=== PATIENT | male | born 1945 | race Caucasian/White ===

== ENCOUNTER 2020-06-09 06:08 | Inpatient (IN) | payer MEDICARE ==
[2020-06-09] MEDS: Nozin Nasal Sanitizer NASBOTH SCH ×2 (06:24→21:12)
[2020-06-09] MEDS ORDERED: Povidone-Iodine 10% Soln 118.25 ML Bottle ONE (06:38)
[2020-06-09] MEDS ORDERED: Bupivacaine 0.5% 30 ML SDV ONE (06:38)
[2020-06-09] MEDS ORDERED: Lactated Ringers 1,000 ML IV SCH (06:45)
[2020-06-09] MEDS ORDERED: Propofol 200 MG/20 ML SDV ONE (07:28)
[2020-06-09] MEDS ORDERED: fentaNYL 100 MCG/2 ML SDV ONE ×2 (07:28→08:41)
[2020-06-09] MEDS ORDERED: Midazolam 1 MG/ML 2 ML SDV ONE (07:28)
[2020-06-09] MEDS ORDERED: ceFAZolin 2 GM in Premix Bag 1 BAG IV ONE (07:30)
[2020-06-09] MEDS ORDERED: ceFAZolin 2 GM in Sodium Chloride 0.9% 100 ML IV ONE (07:30)
[2020-06-09] MEDS ORDERED: Lactated Ringers 1,000 ML ONE (08:06)
[2020-06-09] MEDS ORDERED: Sennosides 8.6 MG Tab PO PRN (09:13)
[2020-06-09] MEDS ORDERED: Ondansetron 4 MG/2 ML SDV IVPUSH PRN (09:13)
[2020-06-09] MEDS ORDERED: Acetaminophen 325 MG Tab PO PRN (09:13)
[2020-06-09] MEDS ORDERED: Acetaminophen/HYDROcodone 325-5 MG Tab PO PRN ×2 (09:13→17:40)
[2020-06-09] MEDS ORDERED: Magnesium Hydroxide 400 MG/5 ML Susp 30 ML Cup PO PRN (09:13)
[2020-06-09] MEDS: Acetaminophen/oxyCODONE 325-5 MG Tab PO PRN ×3 (11:01→19:18)
[2020-06-09] MEDS: Sodium Chloride 0.9% 1,000 ML IV SCH ×2 (11:10→18:19)
--- NOTE | 2020-06-09 11:52 | CR ---
Knee 1V or 2V Rt CLINICAL HISTORY: Hemiarthroplasty Comparison: None FINDINGS: Patient is status post recent medial hemiarthroplasty. Components appear well seated. 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 Impression: Status post medial hemiarthroplasty.
[2020-06-09] MEDS: ceFAZolin 1 GM in Premix Bag 1 BAG IV SCH ×2 (13:58→21:13)
[2020-06-09] MEDS: Morphine 2 MG/ML SYRINGE IVPUSH PRN ×4 (14:15→17:17)
[2020-06-09] MEDS: traMADol 50 MG Tab PO PRN ×2 (16:05→22:41)
[2020-06-09] MEDS ORDERED: Ketorolac 30 MG/ML SDV IVPUSH PRN (17:36)
[2020-06-09] MEDS ORDERED: HYDROmorphone 1 MG/ML Syringe IVPUSH PRN (17:38)
[2020-06-09] MEDS ORDERED: Nozin Nasal Sanitizer NASBOTH SCH (21:00)
[2020-06-09] MEDS: Docusate Sodium 100 MG Cap PO SCH (21:12)
[2020-06-09] MEDS: Triamcinolone Acetonide 0.1% Crm 15 GM Tube TOP SCH (21:13)
[2020-06-10] MEDS: Ketorolac 30 MG/ML SDV IVPUSH SCH ×4 (00:05→17:00)
[2020-06-10] MEDS: Sodium Chloride 0.9% 1,000 ML IV SCH (02:27)
[2020-06-10] MEDS: traMADol 50 MG Tab PO PRN ×3 (05:26→18:19)
[2020-06-10] MEDS: ceFAZolin 1 GM in Premix Bag 1 BAG IV SCH (05:29)
[2020-06-10] MEDS: Acetaminophen/oxyCODONE 325-5 MG Tab PO PRN ×4 (07:31→22:00)
[2020-06-10] MEDS ORDERED: metFORMIN 500 MG Tab PO SCH (09:00)
[2020-06-10] MEDS: Docusate Sodium 100 MG Cap PO SCH ×2 (09:25→20:29)
[2020-06-10] MEDS: Nozin Nasal Sanitizer NASBOTH SCH ×2 (09:25→20:29)
[2020-06-10] MEDS: Hydrochlorothiazide 25 MG Tab (PTOM) PO SCH (09:26)
[2020-06-10] MEDS: Enoxaparin 30 MG/0.3 ML Syringe SUBCUT SCH (09:26)
[2020-06-10] MEDS: METFORMIN 1,000MG TAB (PTOM) PO SCH (09:27)
[2020-06-10] MEDS: Lisinopril 10 MG Tab (PTOM) PO SCH (09:28)
[2020-06-10] MEDS: Triamcinolone Acetonide 0.1% Crm 15 GM Tube TOP SCH (10:38)
--- NOTE | 2020-06-10 16:46 | PCM.SURGPN ---
- General Info Date of Service: 06/10/20 Date of Surgery/Procedure: 06/09/20 POD#: 1 Functional Status: Reports: Tolerating Diet, Ambulating (with FWW ), Urinating - Review of Systems Musculoskeletal: Reports: Leg Pain (right ), Joint Pain (right knee ), Joint Swelling (right knee ) Skin: Reports: Other (incision intact, bloody drainage) - Patient Data Vitals - Most Recent: Last Vital Signs Temp 98.7 F 06/10/20 14:57 Pulse 65 06/10/20 14:57 Resp 18 06/10/20 14:57 BP 131/51 L 06/10/20 14:57 Pulse Ox 97 06/10/20 14:57 Weight - Most Recent: 189 lb I&O - Last 24 Hours: Intake & Output 06/10/20 06/10/20 06/10/20 06:59 14:59 22:59 Intake Total 1519 1340 Output Total 475 625 Balance 1044 715 Lab Results Last 24 Hrs: Laboratory Results - last 24 hr 06/10/20 Range/Units 05:56 WBC 7.6 (4.5-11.0) K/uL RBC 4.74 (4.30-5.90) M/uL Hgb 13.3 (12.0-15.0) g/dL Hct 39.4 L (40.0-54.0) % MCV 83 (80-98) fL MCH 28 (27-31) pg MCHC 34 (32-36) % Plt Count 259 (150-400) K/uL Med Orders - Current: Current Medications Acetaminophen (Acetaminophen 325 Mg Tab) 650 mg PO Q4H PRN PRN Reason: Pain/Fever Hydrocodone Bitart/Acetaminophen (Acetaminophen/Hydrocodone 325-5 Mg Tab) 2 tab PO Q4H PRN PRN Reason: Pain (mild 1-3) Bandage/Support Products (Nozin Nasal Tenterer) 1 applic NASBOTH BID [facility] Stop: 06/15/20 21:01 Last Admin: 06/10/20 09:25 Dose: 1 applic Documented by: Docusate Sodium (Docusate Sodium 100 Mg Cap) 100 mg PO BID [facility] Last Admin: 06/10/20 09:25 Dose: 100 mg Documented by: Enoxaparin Sodium (Enoxaparin 30 Mg/0.3 Ml Syringe) 30 mg SUBCUT DAILY [facility] Last Admin: 06/10/20 09:26 Dose: 30 mg Documented by: Hydrochlorothiazide (Hydrochlorothiazide 25 Mg Tab (Ptom)) 25 mg PO DAILY [facility] Last Admin: 06/10/20 09:26 Dose: 25 mg Documented by: Hydromorphone HCl (Hydromorphone 1 Mg/Ml Syringe) 1 mg IVPUSH Q1H PRN PRN Reason: Breakthrough Pain Last Admin: 06/09/20 21:09 Dose: 1 mg Documented by: Sodium Chloride (Normal Saline) 1,000 mls @ 125 mls/hr IV ASDIRECTED [facility] Last Admin: 06/10/20 02:27 Dose: 125 mls/hr Documented by: Ketorolac Tromethamine (Ketorolac 30 Mg/Ml Sdv) 15 mg IVPUSH Q6H [facility] Stop: 06/14/20 20:58 Last Admin: 06/10/20 12:52 Dose: Not Given Documented by: Lisinopril (Lisinopril 10 Mg Tab (Ptom)) 10 mg PO DAILY [facility] Last Admin: 06/10/20 09:28 Dose: 10 mg Documented by: Magnesium Hydroxide (Magnesium Hydroxide 400 Mg/5 Ml Susp 30 Ml Cup) 30 ml PO BID PRN PRN Reason: Constipation Ondansetron HCl (Ondansetron 4 Mg/2 Ml Sdv) 4 mg IVPUSH Q4H PRN PRN Reason: Nausea/Vomiting Oxycodone/Acetaminophen (Acetaminophen/Oxycodone 325-5 Mg Tab) 1 - 2 tab PO Q4H PRN PRN Reason: Pain Last Admin: 06/10/20 13:16 Dose: 2 tab Documented by: Metformin 1,000mg (Tab (Ptom)) 0 each PO DAILY [facility] Last Admin: 06/10/20 09:27 Dose: 1 each Documented by: Senna (Sennosides 8.6 Mg Tab) 8.6 mg PO BID PRN PRN Reason: Constipation Tramadol HCl (Tramadol 50 Mg Tab) 50 mg PO Q6H PRN PRN Reason: Breakthrough Pain Last Admin: 06/10/20 11:52 Dose: 50 mg Documented by: Discontinued Medications Hydrocodone Bitart/Acetaminophen (Acetaminophen/Hydrocodone 325-5 Mg Tab) 1 tab PO Q4H PRN PRN Reason: Pain (mild 1-3) Bupivacaine HCl (Bupivacaine 0.5% 30 Ml Sdv) Confirm Administered Dose 30 ml .ROUTE .STK-MED ONE Stop: 06/09/20 06:39 Fentanyl (Fentanyl 100 Mcg/2 Ml Sdv) Confirm Administered Dose 100 mcg .ROUTE .STK-MED ONE Stop: 06/09/20 07:29 Fentanyl (Fentanyl 100 Mcg/2 Ml Sdv) Confirm Administered Dose 100 mcg .ROUTE .STK-MED ONE Stop: 06/09/20 08:42 Lactated Ringer's (Ringers, Lactated) 1,000 mls @ 75 mls/hr IV ASDIRECTED [facility] Last Admin: 06/09/20 06:24 Dose: 75 mls/hr Documented by: Cefazolin Sodium/Dextrose 2 gm (/ Premix) 50 mls @ 100 mls/hr IV ONETIME ONE Stop: 06/09/20 07:59 Last Admin: 06/09/20 07:40 Dose: 100 mls/hr Documented by: Lactated Ringer's (Ringers, Lactated) Confirm Administered Dose 1,000 mls @ as directed .ROUTE .STK-MED ONE Stop: 06/09/20 08:07 Cefazolin Sodium/Dextrose 1 gm (/ Premix) 50 mls @ 100 mls/hr IV Q8H [facility] Stop: 06/10/20 06:29 Last Admin: 06/10/20 05:29 Dose: 100 mls/hr Documented by: Ketorolac Tromethamine (Ketorolac 30 Mg/Ml Sdv) 30 mg IVPUSH Q8H PRN PRN Reason: Pain (severe 7-10) Last Admin: 06/09/20 18:11 Dose: 30 mg Documented by: Metformin HCl (Metformin 500 Mg Tab) 500 mg PO DAILY [facility] Midazolam HCl (Midazolam 1 Mg/Ml 2 Ml Sdv) Confirm Administered Dose 2 mg .ROUTE .STK-MED ONE Stop: 06/09/20 07:29 Morphine Sulfate (Morphine 2 Mg/Ml Syringe) 1 mg IVPUSH Q1H PRN PRN Reason: Breakthrough Pain Last Admin: 06/09/20 17:17 Dose: 1 mg Documented by: Povidone Iodine (Povidone-Iodine 10% Soln 118.25 Ml Bottle) Confirm Administered Dose 1 ml .ROUTE .STK-MED ONE Stop: 06/09/20 06:39 Last Admin: 06/09/20 08:53 Dose: 1 ml Documented by: Propofol (Propofol 200 Mg/20 Ml Sdv) Confirm Administered Dose 200 mg .ROUTE .STK-MED ONE Stop: 06/09/20 07:29 Triamcinolone Acetonide (Triamcinolone Acetonide 0.1% Crm 15 Gm Tube) 0 gm TOP BID [facility] Last Admin: 06/10/20 10:38 Dose: Not Given Documented by: - Exam Wound/Incisions: Healing Well, Drainage Quality Assessment: DVT Prophylaxis General: Alert, Oriented, Cooperative, No Acute Distress Extremities: Pedal Edema (mild ), Joint Swelling (R knee ), Leg Pain (right ), Limited Range of Motion, Increased Warmth Skin: Warm, Intact Neurological: No New Focal Deficit Psy/Mental Status: Alert, Normal Affect, Normal Mood Sepsis Event Note - Evaluation Sepsis Screening Result: No Definite Risk - Focused Exam Vital Signs: Vital Signs Temp Pulse Resp BP BP Pulse Ox 06/10/20 14:57 98.7 F 65 18 131/51 L 97 06/10/20 11:00 97.7 F 61 18 124/53 L 94 L 06/10/20 09:28 138/47 L 06/10/20 07:00 99.2 F 72 18 138/47 L 92 L - Problem List & Annotations (1) Status post right partial knee replacement SNOMED Code(s): 016599757, 35595346, 120823938, 357997671 Code(s): Z96.651 - PRESENCE OF RIGHT ARTIFICIAL KNEE JOINT Status: Acute Current Visit: Yes - Problem List Review Problem List Initiated/Reviewed/Updated: Yes - My Orders Last 24 Hours: Active Orders 24 hr Category Date Time Status Admission Status [Patient Status] [ADT] Routine ADT 06/10/20 16:32 Ordered Acetaminophen/HYDROcodone [[place] 325-5 MG] Med 06/09/20 17:40 Active 2 tab PO Q4H PRN Docusate Sodium [Colace] Med 06/09/20 21:00 Active 100 mg PO BID Enoxaparin [Lovenox] Med 06/10/20 09:00 Active 30 mg SUBCUT DAILY HYDROmorphone [Dilaudid] Med 06/09/20 17:38 Active 1 mg IVPUSH Q1H PRN Ketorolac [Toradol] Med 06/10/20 00:00 Active 15 mg IVPUSH Q6H Patient's Own Medication [Ptom] Med 06/10/20 09:00 Active 0 each PO DAILY hydroCHLOROthiazide Med 06/10/20 09:00 Active 25 mg PO DAILY lisinopriL [Prinivil] Med 06/10/20 09:00 Active 10 mg PO DAILY traMADol [Ultram] Med 06/09/20 15:49 Active 50 mg PO Q6H PRN Medication Orders Acetaminophen (Acetaminophen 325 Mg Tab) 650 mg PO Q4H PRN PRN Reason: Pain/Fever Hydrocodone Bitart/Acetaminophen (Acetaminophen/Hydrocodone 325-5 Mg Tab) 2 tab PO Q4H PRN PRN Reason: Pain (mild 1-3) Bandage/Support Products (Nozin Nasal Tenterer) 1 applic NASBOTH BID [facility] Stop: 06/15/20 21:01 Last Admin: 06/10/20 09:25 Dose: 1 applic Documented by: Admin: 06/09/20 21:12 Dose: 1 applic Documented by: Admin: 06/09/20 06:24 Dose: 1 applic Documented by: DIMA Docusate Sodium (Docusate Sodium 100 Mg Cap) 100 mg PO BID [facility] Last Admin: 06/10/20 09:25 Dose: 100 mg Documented by: Admin: 06/09/20 21:12 Dose: 100 mg Documented by: BRE Enoxaparin Sodium (Enoxaparin 30 Mg/0.3 Ml Syringe) 30 mg SUBCUT DAILY [facility] Last Admin: 06/10/20 09:26 Dose: 30 mg Documented by: MACY Hydrochlorothiazide (Hydrochlorothiazide 25 Mg Tab (Ptom)) 25 mg PO DAILY [facility] Last Admin: 06/10/20 09:26 Dose: 25 mg Documented by: MACY Hydromorphone HCl (Hydromorphone 1 Mg/Ml Syringe) 1 mg IVPUSH Q1H PRN PRN Reason: Breakthrough Pain Last Admin: 06/09/20 21:09 Dose: 1 mg Documented by: BRE Sodium Chloride (Normal Saline) 1,000 mls @ 125 mls/hr IV ASDIRECTED [facility] Last Admin: 06/10/20 02:27 Dose: 125 mls/hr Documented by: Infusion: 06/10/20 02:19 Dose: 125 mls/hr Documented by: Admin: 06/09/20 18:19 Dose: 125 mls/hr Documented by: Infusion: 06/09/20 18:19 Dose: 125 mls/hr Documented by: Admin: 06/09/20 11:10 Dose: 125 mls/hr Documented by: ANN Ketorolac Tromethamine (Ketorolac 30 Mg/Ml Sdv) 15 mg IVPUSH Q6H [facility] Stop: 06/14/20 20:58 Last Admin: 06/10/20 12:52 Dose: Not Given Documented by: Admin: 06/10/20 05:27 Dose: 15 mg Documented by: Admin: 06/10/20 00:05 Dose: 15 mg Documented by: BRE Lisinopril (Lisinopril 10 Mg Tab (Ptom)) 10 mg PO DAILY [facility] Last Admin: 06/10/20 09:28 Dose: 10 mg Documented by: MACY Magnesium Hydroxide (Magnesium Hydroxide 400 Mg/5 Ml Susp 30 Ml Cup) 30 ml PO BID PRN PRN Reason: Constipation Ondansetron HCl (Ondansetron 4 Mg/2 Ml Sdv) 4 mg IVPUSH Q4H PRN PRN Reason: Nausea/Vomiting Oxycodone/Acetaminophen (Acetaminophen/Oxycodone 325-5 Mg Tab) 1 - 2 tab PO Q4H PRN PRN Reason: Pain Last Admin: 06/10/20 13:16 Dose: 2 tab Documented by: Admin: 06/10/20 07:31 Dose: 2 tab Documented by: Admin: 06/09/20 19:18 Dose: 2 tab Documented by: Admin: 06/09/20 15:11 Dose: 2 tab Documented by: Admin: 06/09/20 11:01 Dose: 1 tab Documented by: ANN Metformin 1,000mg (Tab (Ptom)) 0 each PO DAILY [facility] Last Admin: 06/10/20 09:27 Dose: 1 each Documented by: MACY Senna (Sennosides 8.6 Mg Tab) 8.6 mg PO BID PRN PRN Reason: Constipation Tramadol HCl (Tramadol 50 Mg Tab) 50 mg PO Q6H PRN PRN Reason: Breakthrough Pain Last Admin: 06/10/20 11:52 Dose: 50 mg Documented by: Admin: 06/10/20 05:26 Dose: 50 mg Documented by: Admin: 06/09/20 22:41 Dose: 50 mg Documented by: Admin: 06/09/20 16:05 Dose: 50 mg Documented by: EL - Assessment Assessment (Free Text/Narrative):: Patient is a pleasant 75 y/o male, s/p R partial knee arthroplasty of the medial compartment, POD#1. Patient tolerated surgery well with no complications. Paco struggled with pain control once the block wore off; pain PRNs were utilized. Reports pain is still present today, but much better controlled then yesterday. Patient was able to ambulate in the hallway with FWW the evening of surgery. Participated in PT twice on POD#1; ambulated 100 feet with FWW, completed bilateral LE strengthening exercises, and safely completed 1 stair. With increased motion, breakthrough bleeding has occurred through R knee incision. Dressing saturated and changed 3x today. Weaned off IV pain medications and transitioned to PO pain medications throughout POD#1. Tolerating consistent carbohydrate diet well with no nausea or vomiting. Catheter was removed and IV saline locked today. HgB stable at 13.3. Patient remains hemodynamically stable, vitals remain within acceptable limits. Patient encouraged to use IS throughout the day. Patient status changed from same day surgery to inpatient, as patient requires monitoring of R knee for resolution of bleeding with motion. Exam: Incision well approximated and intact with no surrounding erythema, but active bloody drainage. Mild warmth to touch of R knee. R knee with significant edema extending into R calf. + R pedal edema. Tibialis posterior pulse appreciated, 2+. Capillary refill appropriate, < 2 seconds. Calf is soft and supple. Sensation to R LE intact. Plan: * Continue PT and OT daily while in the hospital * Continue to monitor R knee incision/dressing for drainage and bleeding; additional ABD dressing + JEREMY wrap compression applied this afternoon by orthopedic provider. Nursing staff may change dressing as needed if breakthrough bleeding occurs * Continue with current pain regimen (see orders for details) * Anticipate discharge to home tomorrow, pending R knee bleeding has ceased and is under control
[2020-06-11] MEDS: Ketorolac 30 MG/ML SDV IVPUSH SCH (00:10)
[2020-06-11] MEDS: Acetaminophen/oxyCODONE 325-5 MG Tab PO PRN ×3 (02:30→11:43)
[2020-06-11] MEDS: Lisinopril 10 MG Tab (PTOM) PO SCH (08:11)
[2020-06-11] MEDS: Enoxaparin 30 MG/0.3 ML Syringe SUBCUT SCH (08:11)
[2020-06-11] MEDS: Hydrochlorothiazide 25 MG Tab (PTOM) PO SCH (08:12)
[2020-06-11] MEDS: METFORMIN 1,000MG TAB (PTOM) PO SCH (08:12)
[2020-06-11] MEDS: Nozin Nasal Sanitizer NASBOTH SCH (08:12)
[2020-06-11] MEDS: Docusate Sodium 100 MG Cap PO SCH (08:13)
[2020-06-11 10:52] VITALS: BP 155/61; PULSE 67
--- NOTE | 2020-06-11 12:25 | PCM.DCSUM1 ---
Discharge Summary - Hospital Course Brief History: Patient is a pleasant 75 y/o male, s/p R partial knee arthroplasty of the medial compartment. Patient has had chronic bilateral knee pain, right worse than the left. Symptoms have been refractory to conservative management, so patient elected to undergo a partial knee arthroplasty. Tolerated surgery well with no complications. Prolonged hospitalization for persistent bleeding of R knee incision. Diagnosis: Stroke: No Modified Glenn Scale: No Symptoms at All Modified Glenn Scale Score: 0 - Discharge Data Discharge Date: 06/11/20 Discharge Disposition: Home, Self-Care 01 Condition: Good - Referral to Home Health Date of Face to Face Encounter: 06/11/20 Reason for Homebound Status: Motivated to go home, support from spouse at home, minimal assistance with ADLs Primary Care Physician: PCP None - Discharge Diagnosis/Problem(s) (1) Status post right partial knee replacement SNOMED Code(s): 661265675, [id number], [id number], [id number] ICD Code: Z96.651 - PRESENCE OF RIGHT ARTIFICIAL KNEE JOINT Status: Acute Current Visit: Yes - Patient Summary/Data Operative Procedure(s) Performed: right knee arthroplasty Consults: Consultations 06/09/20 09:13 Consult to Case Management/Mall Manager [CONS] Routine Comment: Physician Instructions: Service(s) to be Consulted: Case Management Reason for Consult: Plan for Discharge Special Instructions: s/p R partial knee arthroplasty, medial compartment OT Evaluation and Treatment [CONS] Routine Please Evaluate and Treat. OT Reason for Consult: ADL's Special Instructions: s/p R partial medial compartment knee arthroplasty This query below is only for informational purposes and is not editable. PT Evaluation and Treatment [CONS] Routine Please Evaluate and Treat. PT Reason for Consult: Post op Ortho Surgery Special Instructions: s/p R partial knee arthroplasty, medial compartment This query below is only for informational purposes and is not editable. PT Evaluation and Treatment [CONS] Routine Please Evaluate and Treat. PT Reason for Consult: Post op Ortho Surgery Knee Pending Discharge: Yes, 1- 2 days Special Instructions: Schedule first outpatient PT appointment in 3-5 day post discharge. This query below is only for informational purposes and is not editable. Hospital Course: Patient is a pleasant 75 y/o male, s/p R partial knee arthroplasty of the medial compartment, POD#2. Patient tolerated surgery well with no complications. Paco struggled with pain control once the block wore off; PRNs were utilized and by late evening, pain seemed better controlled. Patient was able to ambulate in the hallway with FWW the evening of surgery. Participated in PT daily; ambulated 150+ft with FWW, completed stairs safely, worked on bilateral LE strengthening exercises, and demonstrated competency transferring from bed to chair. Patient demonstrated ability to ADLs with minimal assistance. On POD#1, catheter was removed, IV saline locked, and dressing changed multiple times due to breakthrough bleeding. Patient status changed to inpatient to allow for monitoring and cessation of bleeding from R knee incision. By POD#2, no active drainage from R knee incision. Minimal dried drainage on dressing. Patient showered prior to discharge. New dressing to be applied after shower. Tolerated consistent carbohydrate diet well with no nausea or vomiting. HgB on POD#1 13.3. Patient was hemodynamically stable throughout stay, vitals within acceptable limits. No dizziness nor orthostatic hypotension with ambulation. Pain well controlled with PO medications prior to discharge. Exam: R knee with moderate edema extending into R calf + pedal edema. Incision intact, no surrounding erythema nor active drainage. Mild warmth to touch of R knee. Tibialis posterior pulse appreciated, 2+. Capillary refill appropriate, < 3 seconds. Calf is soft and supple. Sensation to R LE intact. - Patient Instructions Diet: Usual Diet as Tolerated Activity: Apply Ice, Full Weight Bearing, Rest and Relax Today Driving: Do Not Drive Showering/Bathing: Shower in AM Wound/Incision Care: Keep Operative Site/Wound Site Clean and Dry, Change Dressing Daily Notify Provider of: Fever, Increased Pain, Swelling and Redness, Drainage - Discharge Plan *PRESCRIPTION DRUG MONITORING PROGRAM REVIEWED*: Yes *COPY OF PRESCRIPTION DRUG MONITORING REPORT IN PATIENT PINKY: Not Applicable Home Medications: Home Meds Hydrochlorothiazide 25 mg PO DAILY 03/15/16 [History] Lisinopril 10 mg PO DAILY 03/15/16 [History] Triamcinolone Acetonide [Kenalog 0.1% Crm] 1 applic TOP BID 03/15/16 [History] Folic Acid/Multivit-Min/Lutein [Centrum Silver Chewable Tablet] 1 tab PO DAILY 03/29/16 [History] Glucosamine/MSM/Chondroit/C/Mn [Flexi Joint Tablet] 1 tab PO DAILY 03/29/16 [History] Aspirin [Halfprin] 81 mg PO DAILY 06/09/20 [History] metFORMIN [Glucophage] 500 mg PO DAILY 06/09/20 [History] Oxygen Therapy Mode: Room Air Patient Handouts: Preventing Problems After Surgery, Preventing Constipation After Surgery, Partial Knee Replacement, Care After Referrals: Polo Davis, PT [Physical Therapist] - 06/13/20 9:30 am (Please arrive at 9:00 AM to complete paperwork prior to PT appointment.) Jb Cruz MD [Physician] - 06/24/20 11:00 am (Please arrive 15 minutes early to register for your appointment.) - Discharge Summary/Plan Comment DC Time >30 min.: No Discharge Summary/Plan Comment: * Anticipate discharge to home this afternoon. Outpatient physical therapy orders in place. * New dressing applied to R knee over incision prior to discharge. Patient p rovided with 2 tubigrip stockings to help with swelling. * Pain medication script sent with patient; 5-325 mg Percocet, 1-2 tabs q6 hrs prn, dispense #50. * Patient educated about the warning signs of SSIs and DVT/VTE. Patient instructed to take 1 aspirin BID for DVT/VTE prophylaxis. Patient also instructed to continue with Nozin spray BID. * Patient to follow up with ortho clinic in 2 weeks. Encouraged to call if concerns or questions arise prior to scheduled apt. Patient agreeable and expressed understanding of the above plan. - General Info Date of Service: 06/11/20 Functional Status: Reports: Pain Controlled, Tolerating Diet, Ambulating (with FWW ), Urinating - Review of Systems General: Reports: No Symptoms HEENT: Reports: No Symptoms Pulmonary: Reports: No Symptoms Cardiovascular: Reports: No Symptoms Gastrointestinal: Reports: No Symptoms Genitourinary: Reports: No Symptoms Musculoskeletal: Reports: Leg Pain (right ), Joint Pain (right knee ), Joint Swelling (right knee ) Neurological: Reports: No Symptoms Psychiatric: Reports: No Symptoms - Patient Data Vitals - Most Recent: Last Vital Signs Temp 96.9 F 06/11/20 10:51 Pulse 67 06/11/20 10:51 Resp 16 06/11/20 10:51 BP 155/61 H 06/11/20 10:51 Pulse Ox 97 06/11/20 10:51 Weight - Most Recent: 189 lb I&O - Last 24 hours: Intake & Output 06/10/20 06/11/20 06/11/20 22:59 06:59 14:59 Intake Total 200 480 Output Total 1225 1750 400 Balance -1225 -1550 80 Med Orders - Current: Current Medications Acetaminophen (Acetaminophen 325 Mg Tab) 650 mg PO Q4H PRN PRN Reason: Pain/Fever Hydrocodone Bitart/Acetaminophen (Acetaminophen/Hydrocodone 325-5 Mg Tab) 2 tab PO Q4H PRN PRN Reason: Pain (mild 1-3) Bandage/Support Products (Nozin Nasal Hide Examiner) 1 applic NASBOTH BID [facility] Stop: 06/15/20 21:01 Last Admin: 06/11/20 08:12 Dose: 1 applic Documented by: Docusate Sodium (Docusate Sodium 100 Mg Cap) 100 mg PO BID [facility] Last Admin: 06/11/20 08:13 Dose: 100 mg Documented by: Enoxaparin Sodium (Enoxaparin 30 Mg/0.3 Ml Syringe) 30 mg SUBCUT DAILY [facility] Last Admin: 06/11/20 08:11 Dose: 30 mg Documented by: Hydrochlorothiazide (Hydrochlorothiazide 25 Mg Tab (Ptom)) 25 mg PO DAILY [facility] Last Admin: 06/11/20 08:12 Dose: 25 mg Documented by: Hydromorphone HCl (Hydromorphone 1 Mg/Ml Syringe) 1 mg IVPUSH Q1H PRN PRN Reason: Breakthrough Pain Last Admin: 06/09/20 21:09 Dose: 1 mg Documented by: Sodium Chloride (Normal Saline) 1,000 mls @ 125 mls/hr IV ASDIRECTED [facility] Last Admin: 06/10/20 02:27 Dose: 125 mls/hr Documented by: Lisinopril (Lisinopril 10 Mg Tab (Ptom)) 10 mg PO DAILY [facility] Last Admin: 06/11/20 08:11 Dose: 10 mg Documented by: Magnesium Hydroxide (Magnesium Hydroxide 400 Mg/5 Ml Susp 30 Ml Cup) 30 ml PO BID PRN PRN Reason: Constipation Last Admin: 06/11/20 11:47 Dose: 30 ml Documented by: Ondansetron HCl (Ondansetron 4 Mg/2 Ml Sdv) 4 mg IVPUSH Q4H PRN PRN Reason: Nausea/Vomiting Oxycodone/Acetaminophen (Acetaminophen/Oxycodone 325-5 Mg Tab) 1 - 2 tab PO Q4H PRN PRN Reason: Pain Last Admin: 06/11/20 11:43 Dose: 2 tab Documented by: Metformin 1,000mg (Tab (Ptom)) 0 each PO DAILY [facility] Last Admin: 06/11/20 08:12 Dose: 1 each Documented by: Senna (Sennosides 8.6 Mg Tab) 8.6 mg PO BID PRN PRN Reason: Constipation Last Admin: 06/11/20 08:17 Dose: 8.6 mg Documented by: Tramadol HCl (Tramadol 50 Mg Tab) 50 mg PO Q6H PRN PRN Reason: Breakthrough Pain Last Admin: 06/10/20 18:19 Dose: 50 mg Documented by: Discontinued Medications Hydrocodone Bitart/Acetaminophen (Acetaminophen/Hydrocodone 325-5 Mg Tab) 1 tab PO Q4H PRN PRN Reason: Pain (mild 1-3) Bupivacaine HCl (Bupivacaine 0.5% 30 Ml Sdv) Confirm Administered Dose 30 ml .ROUTE .STK-MED ONE Stop: 06/09/20 06:39 Fentanyl (Fentanyl 100 Mcg/2 Ml Sdv) Confirm Administered Dose 100 mcg .ROUTE .STK-MED ONE Stop: 06/09/20 07:29 Fentanyl (Fentanyl 100 Mcg/2 Ml Sdv) Confirm Administered Dose 100 mcg .ROUTE .STK-MED ONE Stop: 06/09/20 08:42 Lactated Ringer's (Ringers, Lactated) 1,000 mls @ 75 mls/hr IV ASDIRECTED [facility] Last Admin: 06/09/20 06:24 Dose: 75 mls/hr Documented by: Cefazolin Sodium/Dextrose 2 gm (/ Premix) 50 mls @ 100 mls/hr IV ONETIME ONE Stop: 06/09/20 07:59 Last Admin: 06/09/20 07:40 Dose: 100 mls/hr Documented by: Lactated Ringer's (Ringers, Lactated) Confirm Administered Dose 1,000 mls @ as directed .ROUTE .STK-MED ONE Stop: 06/09/20 08:07 Cefazolin Sodium/Dextrose 1 gm (/ Premix) 50 mls @ 100 mls/hr IV Q8H [facility] Stop: 06/10/20 06:29 Last Admin: 06/10/20 05:29 Dose: 100 mls/hr Documented by: Ketorolac Tromethamine (Ketorolac 30 Mg/Ml Sdv) 30 mg IVPUSH Q8H PRN PRN Reason: Pain (severe 7-10) Last Admin: 06/09/20 18:11 Dose: 30 mg Documented by: Ketorolac Tromethamine (Ketorolac 30 Mg/Ml Sdv) 15 mg IVPUSH Q6H [facility] Stop: 06/14/20 20:58 Last Admin: 06/11/20 00:10 Dose: Not Given Documented by: Metformin HCl (Metformin 500 Mg Tab) 500 mg PO DAILY [facility] Midazolam HCl (Midazolam 1 Mg/Ml 2 Ml Sdv) Confirm Administered Dose 2 mg .ROUTE .STK-MED ONE Stop: 06/09/20 07:29 Morphine Sulfate (Morphine 2 Mg/Ml Syringe) 1 mg IVPUSH Q1H PRN PRN Reason: Breakthrough Pain Last Admin: 06/09/20 17:17 Dose: 1 mg Documented by: Povidone Iodine (Povidone-Iodine 10% Soln 118.25 Ml Bottle) Confirm Administered Dose 1 ml .ROUTE .STK-MED ONE Stop: 06/09/20 06:39 Last Admin: 06/09/20 08:53 Dose: 1 ml Documented by: Propofol (Propofol 200 Mg/20 Ml Sdv) Confirm Administered Dose 200 mg .ROUTE .STK-MED ONE Stop: 06/09/20 07:29 Triamcinolone Acetonide (Triamcinolone Acetonide 0.1% Crm 15 Gm Tube) 0 gm TOP BID [facility] Last Admin: 06/10/20 10:38 Dose: Not Given Documented by: - Exam Quality Assessment: Reports: DVT Prophylaxis General: Reports: Alert, Oriented, Cooperative, No Acute Distress Extremities: Normal Capillary Refill, Pedal Edema, Leg Pain (right ), Limited R benjamin of Motion, Increased Warmth Skin: Reports: Dry, Intact Wound/Incisions: Reports: Healing Well, Dressing Dry and Intact, No Drainage Neurological: Reports: No New Focal Deficit Psy/Mental Status: Reports: Alert, Normal Affect, Normal Mood
--- NOTE | 2020-06-12 08:20 | OR ---
DATE OF PROCEDURE: 06/09/2020 SURGEON: Jb Cruz MD PREOPERATIVE DIAGNOSIS: Osteoarthritis, right knee. POSTOPERATIVE DIAGNOSES: 1. Osteoarthritis, right knee, medial compartment. 2. Extensive synovitis, right knee. PROCEDURES: 1. Right medial unicompartmental arthroplasty using [employer] ZUK components with a size D femur, 4 tibia, and 8 mm polyethylene. 2. Extensive synovectomy. ANIMAL CONTROL OFFICER: EVER Carrero ANESTHESIA: Spinal with sedation. INDICATIONS: Mr. Cantu is a pleasant 75-year-old gentleman who has been having progressive pain in the right knee for the past couple of years. Particularly over the last few months, it has gotten significantly worse, interfering with activities of daily living. X-rays reveal end-stage osteoarthritis of the medial compartment with a collapse and mild varus deformity. He has well-preserved lateral compartment and patellofemoral joint. He now presents for a medial unicompartmental arthroplasty with the possibility of a total knee arthroplasty. Risks, benefits, and potential complications of the procedure were discussed. The services of position accounting manager assistant controller were utilized throughout the case for limb positioning, retraction, and exposure. DESCRIPTION OF PROCEDURE: After adequate anesthesia was obtained, the patient was placed supine with a tourniquet about the right upper thigh. The right leg was prepped and draped in a sterile fashion. The leg was exsanguinated, and tourniquet inflated to 300 mmHg pressure. A longitudinal incision was made over the anterior aspect of the knee, just slightly medial of midline, from the superior pole of patella to the tibial tubercle. This was carried down to the subcutaneous tissues. Medial parapatellar arthrotomy was performed with a large effusion present. It should be noted that the patient's range of motion was limited by the effusion preoperatively to approximately 100 degrees. The anterior horn of the medial meniscus was excised and the joint was inspected. This revealed a complete eburnation of bone in the medial compartment. Extensive extremely inflamed synovitis was present throughout the knee. This was boggy, very red, and irritated looking. Evaluation of the patellofemoral joint revealed smooth articular surfaces with some very minor softening of the trochlea. A decision was made to proceed with the unicompartmental arthroplasty. [place]ur was utilized to perform a synovectomy in the medial gutter up into the suprapatellar pouch and across into the lateral gutter. A peripheral osteophyte was removed from the femoral condyle. The knee was flexed and the anterior lip of the tibial plateau was removed with an oscillating saw. The knee was extended, and the extramedullary alignment jig was placed. This was aligned and secured to the tibia and femur. Distal femoral cut was then made. This portion of the guide was removed. The knee was flexed and the proximal tibia was resected using a combination of oscillating and reciprocating saws. The guide was removed. This portion of the tibia was excised and the remaining macerated portion of the medial meniscus was also excised using Bovie electrocautery. The femur was sized to a D component. The D cutting guide was secured to the femur. The PEG holes were drilled and remaining cuts were then made. The tibia was sized to a #4 component. The #4 tibial plate was tapped into position and secured with a pin, and drill holes were made for the pegs. A trial reduction was then performed with an 8 mm polyethylene. This provided full extension and flexion to at least 130 degrees with a 2 mm gap in both flexion and extension. The trials were removed. The knee was thoroughly irrigated with pulse lavage. Bone surfaces were dried. The components were cemented in place, excess cement was removed, and the knee was held in full extension with a trial polyethylene as the cement cured. Flexion extension gaps were again checked with good balance at 2 mm. Trial tibial insert was removed. The knee was irrigated. Final polyethylene was snapped into position and the knee was irrigated a final time with a dilute Betadine solution followed by pulse lavage irrigation. Capsule was closed with a #2 Ethibond in a running fashion. The skin was closed with 2-0 Vicryl and a running 3-0 Monocryl. Steri-Strips were applied. Light compressive dressing was then placed. The patient tolerated the procedure well. There were no complications. He was taken from the operating room in stable condition. Jb Cruz MD /[id number]
== END 2020-06-11 13:35 | disposition home or self-care (01) | DRG 470 ==
LOC: JP.SDS 06:08 → JP.MS 09:13 → JP.SDS 06-10 16:51
PROVIDERS: ADMIT Specialist; ATTEND Specialist
PROC: 0SRC0L9 Replacement of Right Knee Joint with Medial Unicondylar Synthetic Substitute, Cemented, Open Approach (ICD-10-PCS; principal; 2020-06-10)
DX: M17.11 Unilateral primary osteoarthritis, right knee (principal); E11.9 Type 2 diabetes mellitus without complications; I10 Essential (primary) hypertension; Z79.82 Long term (current) use of aspirin; Z79.84 Long term (current) use of oral hypoglycemic drugs; Z79.899 Other long term (current) drug therapy; Z90.79 Acquired absence of other genital organ(s); Z87.891 Personal history of nicotine dependence
CPT/HCPCS: 36415; 73560-26-RT; 73560-RT; 82947; 85027; 97110-GP; 97116-GP; 97161-GP; 97165-GO; A9270-GY; C1713; C1776; J0690; J1170; J1650; J1885; J2250; J2270; J2704; J3010; J3490; J7030; J7120

== ENCOUNTER 2021-04-03 06:38 | Day surgery (SDC) | payer MEDICARE ==
[2021-04-03] MEDS ORDERED: Sodium Chloride 0.9% 1,000 ML IV SCH (07:00)
[2021-04-03] MEDS ORDERED: fentaNYL 100 MCG/2 ML SDV ONE (07:18)
[2021-04-03] MEDS ORDERED: Propofol 200 MG/20 ML SDV ONE (07:18)
[2021-04-03] MEDS ORDERED: Midazolam 1 MG/ML 2 ML SDV ONE (07:18)
[2021-04-03 09:22] VITALS: BP 158/88; PULSE 56
== END 2021-04-03 09:25 | disposition home or self-care (01) ==
LOC: JP.SDS 06:38
PROVIDERS: ATTEND Surgery
DX: Z12.11 Encounter for screening for malignant neoplasm of colon (principal); K62.1 Rectal polyp; K57.30 Diverticulosis of large intestine without perforation or abscess without bleeding; I10 Essential (primary) hypertension; E11.9 Type 2 diabetes mellitus without complications
CPT/HCPCS: 45380; J2250; J2704; J3010; J7030; 88305

== ENCOUNTER 2022-12-16 10:40 | Emergency (ER) | payer MEDICARE ==
[2022-12-16 10:46] VITALS: BP 163/78; PULSE 80
[2022-12-16] MEDS ORDERED: Lidocaine 1% 5 ML VIAL INJECT ONE (10:55)
[2022-12-16] MEDS ORDERED: Bacitracin Oint 1 GM U/D Packet TOP ONE (11:04)
[2022-12-16] MEDS ORDERED: Diphtheria,Pertussis(Acell),Tetanus Vaccine 0.5 ML Syringe IM ONE (11:55)
== END 2022-12-16 12:22 | disposition home or self-care (01) ==
LOC: JP.ED 10:40
DX: S62.637B Displaced fracture of distal phalanx of left little finger, initial encounter for open fracture (principal); I10 Essential (primary) hypertension; E11.9 Type 2 diabetes mellitus without complications; M19.90 Unspecified osteoarthritis, unspecified site; Z23 Encounter for immunization; Z79.84 Long term (current) use of oral hypoglycemic drugs; Z79.82 Long term (current) use of aspirin; Z79.899 Other long term (current) drug therapy; W26.8XXA Contact with other sharp object(s), not elsewhere classified, initial encounter
CPT/HCPCS: 12002; 73140-26-F4; 73140-F4; 90471; 90715; 99283-25

== ENCOUNTER 2024-01-23 06:27 | Inpatient (IN) | payer OTHER ==
[2024-01-23] MEDS ORDERED: Bupivacaine 0.5% 50 ML MDV ONE (06:41)
[2024-01-23] MEDS: Nozin Nasal Sanitizer NASBOTH SCH ×2 (06:52→21:19)
[2024-01-23] MEDS: Lactated Ringers 1,000 ML IV SCH (06:52)
[2024-01-23 06:57] LABS: HEMATOCRIT 43.7 % (38.4-49.7); HEMOGLOBIN 14.7 g/dL (12.9-16.9); MEAN CORPUSCULAR HEMOGLOBIN 27.9 pg (31.6-35.5); MEAN CORPUSCULAR HGB CONC 33.6 g/dL (31.6-35.5); MEAN CORPUSCULAR VOLUME 82.9 fL (81.4-99.0); RED BLOOD CELL COUNT 5.27 M/uL (4.14-5.76); WHITE BLOOD CELL COUNT,WBC 7.2 K/uL (3.2-11.0)
[2024-01-23] MEDS ORDERED: fentaNYL 100 MCG/2 ML SDV ONE (07:17)
[2024-01-23] MEDS ORDERED: Midazolam 1 MG/ML 2 ML SDV ONE (07:17)
[2024-01-23] MEDS ORDERED: Propofol 200 MG/20 ML SDV ONE ×2 (07:17→08:51)
[2024-01-23 07:19] LABS: A/G RATIO 0.9 (1.2-2.2); ALANINE AMINOTRANSFERASE,ALT 33 U/L (12-78); ALBUMIN 3.4 g/dL (3.4-5.0); ALKALINE PHOSPHATASE 45 U/L (46-116); ANION GAP 10.8 mmol/L (5.0-14.0); ASPARTATE AMNIOTRANSFERASE,AST 13 U/L (15-37); BILIRUBIN TOTAL 0.5 mg/dL (0.2-1.0); BLOOD UREA NITROGEN,BUN 20 mg/dL (7-18); CALCIUM 9.4 mg/dL (8.5-10.1); CARBON DIOXIDE,CO2 31 mmol/L (21-32); CHLORIDE,CL 100 mmol/L (100-108); CREATININE 1.1 mg/dL (0.8-1.3); EST CRCL DRUG DOSING (CG) 50.91 mL/min; ESTIMATED GFR 68 mL/min (>60); GLUCOSE RANDOM 151 mg/dL (74-106); POTASSIUM,K 3.8 mmol/L (3.6-5.2); PROTEIN TOTAL,TP 7.4 g/dL (6.4-8.2); SODIUM,NA 138 mmol/L (140-148)
[2024-01-23] MEDS ORDERED: Ondansetron 4 MG/2 ML SDV IVPUSH PRN (08:00)
[2024-01-23] MEDS ORDERED: Magnesium Hydroxide 400 MG/5 ML Susp 30 ML Cup PO PRN (08:00)
[2024-01-23] MEDS ORDERED: Morphine 2 MG/ML SYRINGE IVPUSH PRN (08:00)
[2024-01-23] MEDS: ceFAZolin 2 GM in Premix Bag 1 BAG IV ONE (08:00)
[2024-01-23] MEDS: Tranexamic Acid 900 MG in Sodium Chloride 0.9% 50 ML IV ONE (08:30)
[2024-01-23] MEDS ORDERED: Sodium Chloride 0.9% 10 ML ONE (08:46)
[2024-01-23] MEDS ORDERED: ePHEDrine 50 MG/ML SDV ONE (08:46)
[2024-01-23] MEDS: Bupivacaine 0.5% 50 ML MDV ONE (08:48)
[2024-01-23] MEDS ORDERED: GLUCOSAMINE PO SCH (09:00)
[2024-01-23] MEDS ORDERED: CHONDROIT PO SCH (09:00)
[2024-01-23] MEDS ORDERED: [UNRECOGNIZED DRUG - OTHER] PO SCH (09:00)
[2024-01-23] MEDS ORDERED: MSM PO SCH (09:00)
[2024-01-23] MEDS ORDERED: Lactated Ringers 1,000 ML ONE (11:30)
[2024-01-23] MEDS: Acetaminophen 325 MG Tab PO SCH (13:05)
[2024-01-23] MEDS: SITAGLIPTIN 50 MG PO SCH (13:06)
[2024-01-23] MEDS: metFORMIN 500 MG Tab PO SCH (13:06)
[2024-01-23] MEDS: Multivitamins with Iron/Calcium/Folic Acid/Minerals Tab PO SCH (13:07)
[2024-01-23] MEDS: Ketorolac 30 MG/ML SDV IVPUSH PRN (13:07)
[2024-01-23] MEDS: Sodium Chloride 0.9% 1,000 ML IV SCH (14:45)
[2024-01-23] MEDS: oxyCODONE 5 MG Tab PO PRN (15:11)
[2024-01-23] MEDS: ceFAZolin 2 GM in Premix Bag 1 BAG IV SCH (16:08)
[2024-01-23] MEDS: Triamcinolone Acetonide 0.1% Crm 15 GM Tube TOP SCH (21:17)
[2024-01-23] MEDS: Pravastatin 20 MG Tab PO SCH (21:18)
[2024-01-24] MEDS: Hydrochlorothiazide 25 MG Tab PO SCH (08:54)
[2024-01-24] MEDS: Lisinopril 10 MG Tab PO SCH (08:54)
[2024-01-24] MEDS ORDERED: SITAGLIPTIN 50 MG PO SCH (09:40)
[2024-01-24] MEDS: SITAGLIPTIN 50 MG PO SCH (10:17)
[2024-01-24] MEDS: Aspirin 325 MG Tab.EC PO SCH (10:20)
[2024-01-24] MEDS: oxyCODONE 5 MG Tab PO PRN (19:30)
[2024-01-24] MEDS: Docusate Sodium 100 MG Cap PO PRN (21:12)
[2024-01-25 11:29] VITALS: BP 134/56; PULSE 57
== END 2024-01-25 15:45 | disposition home or self-care (01) | DRG 470 ==
LOC: JP.SDS 06:27 → JP.ICU 08:00 → JP.SDS 01-24 15:25 → JP.ICU 01-24 15:26
PROVIDERS: ADMIT Specialist; ATTEND Specialist
PROC: 0SRD069 Replacement of Left Knee Joint with Oxidized Zirconium on Polyethylene Synthetic Substitute, Cemented, Open Approach (ICD-10-PCS; principal; 2024-01-23 08:15)
DX: M17.12 Unilateral primary osteoarthritis, left knee (principal); E11.9 Type 2 diabetes mellitus without complications; I10 Essential (primary) hypertension; E78.5 Hyperlipidemia, unspecified; Z85.46 Personal history of malignant neoplasm of prostate; Z98.890 Other specified postprocedural states
CPT/HCPCS: 01402-QZ; 36415; 73560-26-LT; 73560-LT; 80053; 82947; 85027; 93005; 93010; 97110-GP; 97116-GP; 97161-GP; 97165-GO; 97530-GP; 97535-GO; A9270-GY; C1713; C1776; J0665; J0690; J1885; J2250; J2704; J3010; J3490; J7030; J7120